=== PATIENT | female | born 2000 | race Caucasian/White ===

== ENCOUNTER 2019-08-13 10:28 | Emergency (ER) | payer OTHER ==
[~2019-08-13] VITALS: Ht 152.4 cm; Wt 40.9 kg
--- NOTE | 2019-08-13 11:31 | NUR ---
PT IS REQUESTING WATER, I LET HER KNOW THAT SHE HAS BEEN VOMITING SO SHE NEEDS TO WAIT TO SEE PROVIDER FIRST
[2019-08-13] MEDS ORDERED: normal saline 1000ML IV soln IVB ONE (11:55)
[2019-08-13] MEDS ORDERED: ondansetron/PF 4mg/2ml inj IV ONE (12:20)
--- NOTE | 2019-08-13 12:29 | NUR ---
PT WAS GEORGINA RAMIRES GIVEN
[2019-08-13 13:13] VITALS: BP 124/68
[2019-08-13] MEDS ORDERED: proCHLORperazine 10 MG/2 ml inj IV ONE (13:30)
== END 2019-08-13 14:19 | disposition left against medical advice (07) ==
LOC: ER 10:29
DX: F10.129 Alcohol abuse with intoxication, unspecified (principal); R11.10 Vomiting, unspecified; Y90.0 Blood alcohol level of less than 20 mg/100 ml
CPT/HCPCS: 36415; 80320; 96361; 96374; 96375; 99285; J0780; J2405; J7030